=== PATIENT | female | born 1960 | race Caucasian/White ===

== ENCOUNTER 2022-11-02 19:13 | Emergency (ER) | payer OTHER ==
[2022-11-02] MEDS ORDERED: HYDROcodone/Acetaminophen 5/325 mg Tablet ONE (19:54)
== END 2022-11-02 20:57 | disposition home or self-care (01) ==
LOC: ERS 19:13
DX: S70.02XA Contusion of left hip, initial encounter (principal); I10 Essential (primary) hypertension; J44.9 Chronic obstructive pulmonary disease, unspecified; F17.210 Nicotine dependence, cigarettes, uncomplicated; W10.9XXA Fall (on) (from) unspecified stairs and steps, initial encounter; Y92.813 Airplane as the place of occurrence of the external cause

== ENCOUNTER 2022-11-08 18:45 | Emergency (ER) | payer OTHER ==
[2022-11-08] MEDS ORDERED: Ketorolac Tromethamine 30 MG/ML VIAL ONE (19:10)
[2022-11-08] MEDS ORDERED: HYDROcodone/Acetaminophen 5/325 mg Tablet ONE (19:10)
== END 2022-11-08 19:33 | disposition home or self-care (01) ==
LOC: ERS 18:45
DX: M25.552 Pain in left hip (principal); S39.012A Strain of muscle, fascia and tendon of lower back, initial encounter; I10 Essential (primary) hypertension; J44.9 Chronic obstructive pulmonary disease, unspecified; F17.210 Nicotine dependence, cigarettes, uncomplicated; W19.XXXA Unspecified fall, initial encounter
CPT/HCPCS: 96372; 99283; J1885

== ENCOUNTER 2023-01-08 12:35 | Outpatient (CLI) | payer BC | END 2023-01-08 12:36 | disposition home or self-care (01) | LOC: BICCT 12:35 | PROVIDERS: ATTEND Neurological Surgery | DX: S32.059A Unspecified fracture of fifth lumbar vertebra, initial encounter for closed fracture (principal); M47.817 Spondylosis without myelopathy or radiculopathy, lumbosacral region; M25.78 Osteophyte, vertebrae; M85.88 Other specified disorders of bone density and structure, other site; M43.8X8 Other specified deforming dorsopathies, sacral and sacrococcygeal region | CPT/HCPCS: 72131 ==

== ENCOUNTER 2023-01-08 13:14 | Outpatient (CLI) | payer BC | END 2023-01-08 13:15 | disposition home or self-care (01) | LOC: BICMAMMO 13:14 | PROVIDERS: ATTEND Neurological Surgery | DX: Z13.820 Encounter for screening for osteoporosis (principal); S32.009A Unspecified fracture of unspecified lumbar vertebra, initial encounter for closed fracture; M81.0 Age-related osteoporosis without current pathological fracture | CPT/HCPCS: 77080 ==